=== PATIENT | male | born 1960 | race Asian ===

== ENCOUNTER 2019-03-04 05:02 | Emergency (ER) | payer OTHER ==
[2019-03-04 05:13] VITALS: TEMP 97.6; BMI 26.9
--- NOTE | 2019-03-04 05:13 | PDOC ---
History of Present Illness - General Chief Complaint: Chest Pain Stated Complaint: CHEST PAIN Time Seen by Provider: 03/04/19 05:10 - History of Present Illness Initial Comments: 59yo M with PMH of HLD and DM presenting with chest pain. Patient states he had a couple seconds of chest pain described as "pinching" and rated 2/10 at around 3:45am in the morning. This woke him up from sleeping. He felt a similar episode about one hour later, also lasting a couple seconds. The pain is non- radiating, non-palpable, and non-pleuritic. No nausea, vomiting, or diaphoresis. Patient without chest pain currently. Patient had felt similar pain several years ago which had a negative cardiac workup. Denies personal or family history of GA. Patient reports that his last ECHO was in Sep 2018 and his last EKG was in Nov which were both "normal." No hemoptysis, no recent surgical history, no recent immobilization, no hormone use, no history of DVT or PE. No fevers, shortness of breath, or abdominal pain. Past History - Past Medical History Allergies/Adverse Reactions: Allergies Allergy/AdvReac Type Severity Reaction Status Date / Time No Known Allergies Allergy Verified 03/04/19 05:11 Home Medications: Ambulatory Orders Cholecalciferol (Vitamin D3) [Vitamin D3] 1,000 unit PO DAILY 04/21/14 Insulin Glargine,Hum.rec.anlog [Lantus Solostar PEN -] 28 units SQ DAILY Losartan Potassium [Cozaar] 50 mg PO DAILY 04/21/14 [place]-3 Acid Ethyl Esters [Lovaza -] 1,000 mg PO BID 04/21/14 Sitagliptin Phos/Metformin HCl [Janumet 50-1,000 mg Tablet] 1 tab PO BID Vitamin E 800 unit PO DAILY 04/21/14 Canagliflozin [Invokana] 100 mg PO DAILY 03/04/19 Anemia: No Asthma: No Cancer: No Cardiac Disorders: No CVA: No COPD: No CHF: No Dementia: No Diabetes: Yes (INSULIN DEPENDENT DM) GI Disorders: Yes (CONSTIPATION) Disorders: No HTN: Yes Hypercholesterolemia: Yes Liver Disease: No Seizures: No Thyroid Disease: No - Surgical History Abdominal Surgery: No Appendectomy: No Cardiac Surgery: No Cholecystectomy: No Lung Surgery: No Neurologic Surgery: No Orthopedic Surgery: No - Immunization History Immunization Up to Date: Yes - Suicide/Smoking/Psychosocial Hx Smoking History: Never smoked Have you smoked in the past 12 months: No Information on smoking cessation initiated: No Hx Alcohol Use: No Drug/Substance Use Hx: No Substance Use Type: Alcohol Hx Substance Use Treatment: No Review of Systems - Review of Systems Comments:: Constitutional: no fever, no chills HEENT: no throat pain, no dysphagia Cardiovascular: +chest pain, no palpitations Respiratory: no cough, no shortness of breath Gastrointestinal: no abdominal pain, no nausea Genitourinary: no dysuria, no frequency Musculoskeletal: no myalgia, no arthralgia Skin: no rash, no itching Neurologic: no headache, no weakness *Physical Exam - Vital Signs Last Vital Signs Temp Pulse Resp BP Pulse Ox 97.6 F 90 18 142/96 99 03/04/19 05:11 03/04/19 05:11 03/04/19 05:11 03/04/19 05:11 03/04/19 05:11 - Physical Exam Comments: General: Awake, alert, and fully oriented, in no acute distress Head: No signs of trauma Eyes: EOMI, sclera anicteric ENT: Moist mucus membranes Neck: Normal ROM, supple Lungs: Lungs clear, Normal breath sounds Cardio: Regular rhythm, S1 and S2 present Abdomen: Soft, nontender Extremities: Normal range of motion, Distal pulses present SKIN: Warm, Dry, normal turgor Neurologic: Cranial nerves II through XII grossly intact. Normal speech ED Treatment Course - LABORATORY CBC & Chemistry Diagram: 03/04/19 06:00 03/04/19 06:00 Medical Decision Making - Medical Decision Making 58yo M with PMH of HLD and DM presenting with chest pain. DDX including but not limited to ACS, PE, PNA, MSK. GERD Labs, EKG, CXR EKG: rate 85, QTc 435, NSR, No ST d/e 03/04/19 05:14 CBC WBC 10.3 K/mm3 (4.0-10.0) H 03/04/19 06:00 RBC 4.76 M/mm3 (4.00-5.60) 03/04/19 06:00 Hgb 15.7 GM/dL (11.7-16.9) 03/04/19 06:00 Hct 45.1 % (35.4-49) 03/04/19 06:00 MCV 94.7 fl (80-96) 03/04/19 06:00 MCH 33.1 pg (25.7-33.7) 03/04/19 06:00 MCHC 34.9 g/dl (32.0-35.9) 03/04/19 06:00 RDW 13.4 % (11.9-15.9) 03/04/19 06:00 Plt Count 176 K/MM3 (134-434) 03/04/19 06:00 MPV 7.4 fl (7.5-11.1) L 03/04/19 06:00 Absolute Neuts (auto) 7.1 K/mm3 (1.5-8.0) 03/04/19 06:00 Neutrophils % 69.2 % (42.8-82.8) 03/04/19 06:00 Lymphocytes % 18.2 % (8-40) D 03/04/19 06:00 Monocytes % 9.5 % (3.8-10.2) 03/04/19 06:00 Eosinophils % 2.7 % (0-4.5) 03/04/19 06:00 Basophils % 0.4 % (0-2.0) 03/04/19 06:00 Nucleated RBC % 0 % (0-0) 03/04/19 06:00 Slight leukocytosis No anemia CMP Sodium 139 mmol/L (136-145) 03/04/19 06:00 Potassium 4.5 mmol/L (3.5-5.1) 03/04/19 06:00 Chloride 105 mmol/L (98-107) 03/04/19 06:00 Carbon Dioxide 28 mmol/L (21-32) 03/04/19 06:00 Anion Gap 5 MMOL/L (8-16) L 03/04/19 06:00 BUN 17 mg/dL (7-18) 03/04/19 06:00 Creatinine 1.0 mg/dL (0.55-1.3) 03/04/19 06:00 Est GFR (CKD-EPI)AfAm 95.06 03/04/19 06:00 Est GFR (CKD-EPI)NonAf 82.02 03/04/19 06:00 Random Glucose 138 mg/dL (74-106) H 03/04/19 06:00 Calcium 8.8 mg/dL (8.5-10.1) 03/04/19 06:00 Total Bilirubin 0.7 mg/dL (0.2-1) 03/04/19 06:00 AST 9 U/L (15-37) L 03/04/19 06:00 ALT 27 U/L (13-61) 03/04/19 06:00 Alkaline Phosphatase 56 U/L (45-117) 03/04/19 06:00 Creatine Kinase 50 U/L (26-308) 03/04/19 08:20 Troponin I < 0.02 ng/ml (0.00-0.05) 03/04/19 08:20 Total Protein 6.8 g/dl (6.4-8.2) 03/04/19 06:00 Albumin 3.6 g/dl (3.4-5.0) 03/04/19 06:00 Electrolytes WNL Tpn undetectable CXR: "A single AP view of the chest has been submitted. There is an apical lordotic projection with clear lungs, normal mediastinum and sharp angles. The bones and soft tissues are intact. Since 2012 there is no change of an adverse nature." Pending second Tpn Patient signed out to Dr. Guzman and day team *DC/Admit/Observation/Transfer Diagnosis at time of Disposition: Chest pain - Discharge Dispostion Disposition: HOME Condition at time of disposition: Good - Referrals Referrals: Andrew Holt MD [Primary Care Provider] - - Patient Instructions Printed Discharge Instructions: DI for Atypical Chest Pain Additional Instructions: You were evaluated today for your chest pain. Your labs, an EKG and a chest x-ray showed no concerning findings and at this time you are safe for discharge home. Make an appointment for further evaluation with Dr. Holt in the next 3 days. You also require evaluation by a green building engineer for stress testing. We have provided a referral or you can call your insurance company for a list of doctors. Return immediately to the Emergency Department for any new/worsening/concerning symptoms. - Post Discharge Activity
--- NOTE | 2019-03-04 05:48 | PDOC ---
Attending Attestation - Resident Resident Name: Liz Givens - ED Attending Attestation I have performed the following: I have examined & evaluated the patient, The case was reviewed & discussed with the resident, I agree w/resident's findings & plan, Exceptions are as noted
[2019-03-04 06:19] LABS: BASO % 0.4 % (0-2.0); EOS % 2.7 % (0-4.5); HEMATOCRIT 45.1 % (35.4-49); HEMOGLOBIN 15.7 GM/dL (11.7-16.9); LYMPH % 18.2 % (8-40); MCH 33.1 pg (25.7-33.7); MCHC 34.9 g/dl (32.0-35.9); MEAN CELL VOLUME 94.7 fl (80-96); MEAN PLT VOLUME 7.4 fl (7.5-11.1); MONO % 9.5 % (3.8-10.2); NEUT % 69.2 % (42.8-82.8); PLATELET COUNT 176 K/MM3 (134-434); RBC 4.76 M/mm3 (4.00-5.60); RDW 13.4 % (11.9-15.9); WHITE BLOOD COUNT 10.3 K/mm3 (4.0-10.0)
[2019-03-04 06:32] LABS: INR 1.01 (0.83-1.09); PROTHROMBIN TIME (PATIENT) 11.9 SEC (9.7-13.0)
[2019-03-04 06:35] LABS: ACTIVATED PTT 27.9 SECONDS (25.2-36.5)
[2019-03-04 06:40] LABS: ALBUMIN 3.6 g/dl (3.4-5.0); ALK PHOS 56 U/L (45-117); ANION GAP 5 MMOL/L (8-16); BILIRUBIN,TOTAL 0.7 mg/dL (0.2-1); BLOOD UREA NITROGEN 17 mg/dL (7-18); CALCIUM 8.8 mg/dL (8.5-10.1); CHLORIDE 105 mmol/L (98-107); CO2 28 mmol/L (21-32); GLUCOSE,RANDOM 138 mg/dL (74-106); POTASSIUM 4.5 mmol/L (3.5-5.1); SGOT/AST 9 U/L (15-37); SGPT/ALT 27 U/L (13-61); SODIUM 139 mmol/L (136-145); TOT PROT 6.8 g/dl (6.4-8.2)
--- NOTE | 2019-03-04 07:13 | PDOC ---
*Physical Exam - Vital Signs Last Vital Signs Temp Pulse Resp BP Pulse Ox 97.6 F 82 21 H 127/82 97 03/04/19 05:11 03/04/19 07:03 03/04/19 07:03 03/04/19 07:03 03/04/19 07:03 - Physical Exam Comments: 03/04/19 09:46 Awake, alert, well appearing CV: S1, S2 no M/R/G Respiratory: CLTA B/L Extremity: 2+ DP pulse B/L, no edema ED Treatment Course - LABORATORY CBC & Chemistry Diagram: 03/04/19 06:00 03/04/19 06:00 - ADDITIONAL ORDERS Additional order review: Laboratory Results 03/04/19 03/04/19 06:00 06:00 PT with INR 11.90 INR 1.01 PTT (Actin FS) 27.9 Sodium 139 Potassium 4.5 Chloride 105 Carbon Dioxide 28 Anion Gap 5 L BUN 17 Creatinine 1.0 Est GFR (CKD-EPI)AfAm 95.06 Est GFR (CKD-EPI)NonAf 82.02 Random Glucose 138 H Calcium 8.8 Total Bilirubin 0.7 AST 9 L ALT 27 Alkaline Phosphatase 56 Creatine Kinase 59 Troponin I < 0.02 Total Protein 6.8 Albumin 3.6 03/04/19 06:00 RBC 4.76 MCV 94.7 MCHC 34.9 RDW 13.4 MPV 7.4 L Neutrophils % 69.2 Lymphocytes % 18.2 D Monocytes % 9.5 Eosinophils % 2.7 Basophils % 0.4 Medical Decision Making - Medical Decision Making 03/04/19 07:12 Care endorsed @ Dr. Givens (Resident) and Dr. Horowitz (Attending) @ 0700 58 year old male with 2-3 episodes of intermittent substernal chest tightness. No associated shortness of breath, lightheadedness of palpitations. H/o negative stress testing > 5 years previous. PMH includes IDDM, HLD, HTN. @ [facility] med-surg nurse @ bedside. Heart Score 3. 03/04/19 07:31 Patient assessed @ bedside. Well appearing, VSS 1 episode of 2-3 seconds of substernal chest tightness while in the ED. H/o negative stress testing >5 years previous 03/04/19 08:31 Repeat Troponin pending 03/04/19 09:26 2nd Troponin (-) Call placed to patient's PMD, Dr. Holt 03/04/19 09:30 Patient reassessed @ bedside VSS Resting comfortably, no additional episodes of chest tightness/CP while in ED 03/04/19 09:32 Case d/w Dr. Holt - agrees with d/c home, will see patient in office and refer to cardiology 03/04/19 09:41 Repeat VS: BP 125/82, HR 96%, SpO2 100% on RA 03/04/19 09:47 Patient given copy of labs, EKG and CXR report. Patient is well appearing with normal vitals and clinically stable for discharge at this time. I discussed the physical exam findings, ancillary test results and final diagnoses with the patient. I answered all of the patient and patient's questions. The patient was satisfied with the care received and felt comfortable with the discharge plan and treatment plan. The patient agrees to follow up with his primary care physician within 24-72 hours. *DC/Admit/Observation/Transfer Diagnosis at time of Disposition: Chest pain - Discharge Dispostion Disposition: HOME Condition at time of disposition: Good Decision to Admit order: No - Referrals Referrals: Andrew Holt MD [Primary Care Provider] - - Patient Instructions Printed Discharge Instructions: DI for Atypical Chest Pain Additional Instructions: You were evaluated today for your chest pain. Your labs, an EKG and a chest x-ray showed no concerning findings and at this time you are safe for discharge home. Make an appointment for further evaluation with Dr. Holt in the next 3 days. You also require evaluation by a drill punch operator for stress testing. We have provided a referral or you can call your insurance company for a list of doctors. Return immediately to the Emergency Department for any new/worsening/concerning symptoms. - Post Discharge Activity
[2019-03-04] MEDS ORDERED: ASPIRIN 325 MG TABLET PO ONE (08:24)
[2019-03-04] MEDS ORDERED: ASPIRIN 325 MG TABLET ONE (08:38)
--- NOTE | 2019-03-04 10:14 | PDOC ---
*Physical Exam - Vital Signs Last Vital Signs Temp Pulse Resp BP Pulse Ox 97.6 F 82 21 H 127/82 99 03/04/19 05:11 03/04/19 07:03 03/04/19 07:03 03/04/19 07:03 03/04/19 07:30 - Physical Exam General Appearance: Yes: Nourished Neck: positive: Trachea midline Respiratory/Chest: positive: Lungs Clear, Normal Breath Sounds Cardiovascular: positive: Regular Rhythm, Regular Rate, S1, S2 Gastrointestinal/Abdominal: positive: Normal Bowel Sounds, Flat, Soft. negative : Tender Musculoskeletal: positive: Normal Inspection ED Treatment Course - LABORATORY CBC & Chemistry Diagram: 03/04/19 06:00 03/04/19 06:00 - ADDITIONAL ORDERS Additional order review: Laboratory Results 03/04/19 03/04/19 03/04/19 08:20 06:00 06:00 PT with INR 11.90 INR 1.01 PTT (Actin FS) 27.9 Sodium 139 Potassium 4.5 Chloride 105 Carbon Dioxide 28 Anion Gap 5 L BUN 17 Creatinine 1.0 Est GFR (CKD-EPI)AfAm 95.06 Est GFR (CKD-EPI)NonAf 82.02 Random Glucose 138 H Calcium 8.8 Total Bilirubin 0.7 AST 9 L ALT 27 Alkaline Phosphatase 56 Creatine Kinase 50 59 Troponin I < 0.02 < 0.02 Total Protein 6.8 Albumin 3.6 03/04/19 06:00 RBC 4.76 MCV 94.7 MCHC 34.9 RDW 13.4 MPV 7.4 L Neutrophils % 69.2 Lymphocytes % 18.2 D Monocytes % 9.5 Eosinophils % 2.7 Basophils % 0.4 - Medications Given in the ED: ED Medications Discontinued Medications Generic Name Dose Route Start Last Admin Trade Name Freq PRN Reason Stop Dose Admin Aspirin 325 mg 03/04/19 08:24 03/04/19 08:42 Asa - PO 03/04/19 08:25 325 mg ONCE ONE Administration Medical Decision Making - Medical Decision Making 03/04/19 10:09 58 yo male signed out to me by DR Horowitz, assumed care of pt at 7am, pending repeat troponin. benjie, Mr Garg 58 yo male h/o HLD HTN here with c/o chest pain. describes as burning and pinching in quality. no radiation. has had before. pt thought it was gas. no associated n/v no sob. no leg swelling. states he has had a stress test many years ago, did have a recent echo in 2017. no chest pain currently. pt with normal exam. labs reviewed. trop negative x 2. cxr negative. will dc home. Dr Guzman called dr hammond will see pt later today to arrange cardiology fu. d/w family and agreeable with plan. *DC/Admit/Observation/Transfer Diagnosis at time of Disposition: Chest pain - Discharge Dispostion Disposition: HOME Condition at time of disposition: Good - Referrals Referrals: Andrew Hammond MD [Primary Care Provider] - - Patient Instructions Printed Discharge Instructions: DI for Atypical Chest Pain Additional Instructions: You were evaluated today for your chest pain. Your labs, an EKG and a chest x-ray showed no concerning findings and at this time you are safe for discharge home. Make an appointment for further evaluation with Dr. Hammond in the next 3 days. You also require evaluation by a pressing department supervisor for stress testing. We have provided a referral or you can call your insurance company for a list of doctors. Return immediately to the Emergency Department for any new/worsening/concerning symptoms. - Post Discharge Activity
[2019-03-04 10:24] VITALS: BP 125/82; PULSE 85
--- NOTE | 2019-03-04 13:30 | EKG ---
Test Reason : Blood Pressure : / mmHG Vent. Rate : 085 BPM Atrial Rate : 085 BPM P-R Int : 156 ms QRS Dur : 090 ms QT Int : 366 ms P-R-T Axes : 039 -07 020 degrees QTc Int : 435 ms NORMAL SINUS RHYTHM ABNORMAL ECG WHEN COMPARED WITH ECG OF 21-APR-2014 07:21, NO SIGNIFICANT CHANGE WAS FOUND Confirmed by LAURA ROSENBERG MD ([id number]) on 03/04/2019 1:30:27 PM Referred By: Confirmed By:LAURA ROSENBERG MD
== END 2019-03-04 10:10 | disposition home or self-care (01) ==
LOC: JER 05:02
DX: R07.9 Chest pain, unspecified (principal); E11.9 Type 2 diabetes mellitus without complications; I10 Essential (primary) hypertension; E78.5 Hyperlipidemia, unspecified
CPT/HCPCS: 36415; 71045-TC-FY; 80053; 82550; 84484; 85025; 85610; 85730; 93005; 93010; 99284-25

== ENCOUNTER 2019-06-01 07:48 | Day surgery (SDC) | payer OTHER ==
[2019-06-01 08:28] VITALS: TEMP 98.3
[2019-06-01 10:52] VITALS: BP 130/88; PULSE 88
[2019-06-01 12:45] LABS: ALBUMIN 3.9 g/dl (3.4-5.0); ALK PHOS 58 U/L (45-117); ANION GAP 7 MMOL/L (8-16); BILIRUBIN,TOTAL 0.9 mg/dL (0.2-1); BLOOD UREA NITROGEN 11.7 mg/dL (7-18); CALCIUM 9.3 mg/dL (8.5-10.1); CHLORIDE 102 mmol/L (98-107); CO2 30 mmol/L (21-32); CREATININE 0.9 mg/dL (0.55-1.3); GLUCOSE,RANDOM 252 mg/dL (74-106); IRON SERUM 80 ug/dL (50-175); POTASSIUM 4.2 mmol/L (3.5-5.1); SGOT/AST 20 U/L (15-37); SGPT/ALT 37 U/L (13-61); SODIUM 138 mmol/L (136-145); TOTAL IRON BINDING CAPACITY 300 ug/dL (250-450)
[2019-06-01 12:48] LABS: BASO % 0.3 % (0-2.0); EOS % 3.3 % (0-4.5); HEMATOCRIT 45.3 % (35.4-49); HEMOGLOBIN 16.3 GM/dL (11.7-16.9); LYMPH % 21.2 % (8-40); MCH 34.3 pg (25.7-33.7); MCHC 35.9 g/dl (32.0-35.9); MEAN CELL VOLUME 95.4 fl (80-96); MEAN PLT VOLUME 7.3 fl (7.5-11.1); MONO % 6.8 % (3.8-10.2); NEUT % 68.4 % (42.8-82.8); PLATELET COUNT 144 K/MM3 (134-434); RBC 4.75 M/mm3 (4.00-5.60); RDW 13.4 % (11.9-15.9); WHITE BLOOD COUNT 6.9 K/mm3 (4.0-10.0)
[2019-06-02 12:12] LABS: TRANSGLUTAMINASE IGA < 2 U/mL (0-3); TRANSGLUTAMINASE IGG 2 U/mL (0-5)
--- NOTE | 2019-06-02 16:39 | PATH ---
Surgical Pathology Report Patient Name: KARRI MORGAN [facility]. Rec. #: [id number] /Age/Gender: 1960 (Age: 59) / M Account: [id number] Location: [facility]-ENDOSCOPY Taken: 06/01/2019 Received: 06/01/2019 Reported: 06/02/2019 Physicians: Pilar Tabor M.D. Specimen(s) Received A: SECOND PORTION DUODENUM AND DUODENAL BULB B: GASTRIC ANTRUM C: ANTRAL POLYP D: DISTAL TRANSVERSE COLON POLYP E: RIGHT COLON POLYP F: PROXIMAL TRANSVERSE COLON POLYP G: POLYP RECTUM Clinical History Constipation, colon cancer screening, abdominal pain, early satiety, rule out ulcer Postoperative diagnosis: Multiple bulb ulcers, atrophic gastritis, antral polyp, colon polyps, diverticulosis Final Diagnosis A. DUODENUM, SECOND PORTION AND DUODENAL BULB, BIOPSY: DUODENAL MUCOSA WITH SEVERE ACUTE AND CHRONIC DUODENITIS AND ASSOCIATED ULCERATION. B. GASTRIC ANTRUM, BIOPSY: GASTRIC ANTRAL MUCOSA WITH MILD CHRONIC GASTRITIS. IMMUNOHISTOCHEMICAL STAIN FOR H. PYLORI IS NEGATIVE. C. ANTRAL POLYP, BIOPSY: POLYPOID GASTRIC ANTRAL MUCOSA WITH MILD CHRONIC GASTRITIS AND MILD LAMINA PROPRIA FIBROSIS. IMMUNOHISTOCHEMICAL STAIN FOR H. PYLORI IS NEGATIVE. NO CARCINOID TUMOR IDENTIFIED, SEE COMMENT. D. DISTAL TRANSVERSE COLON POLYPS, POLYPECTOMY: HYPERPLASTIC POLYP. E. COLON, RIGHT, POLYP, POLYPECTOMY: TUBULAR ADENOMA. F. PROXIMAL TRANSVERSE COLON, POLYP, POLYPECTOMY: POLYPOID COLONIC MUCOSA WITH PROMINENT LYMPHOID AGGREGATE AND SUPERFICIAL HYPERPLASTIC FEATURES. G. RECTUM POLYP, POLYPECTOMY: HYPERPLASTIC POLYP. Comment: Part C, Immunohistochemical stains performed and interpreted at [facility] show chromogranin highlights rare ECL cells. No diagnostic features of carcinoid tumor identified. Suggest clinical and endoscopic correlation. Electronically Signed Nayeli Salguero M.D. Gross Description A. Received in formalin, labeled "second portion duodenum and duodenal bulb" are 3 arguello, irregular portions of soft tissue measuring 0.2-0.3 cm. in greatest dimension. The specimens are submitted in toto in one cassette. B. Received in formalin, labeled "gastric antrum" are 3 arguello, irregular portions of soft tissue measuring 0.3-0.5 cm. in greatest dimension. The specimens are submitted in toto in one cassette. C. Received in formalin, labeled "antral polyp" are 5 arguello, irregular portions of soft tissue measuring 0.1-0.2 cm. in greatest dimension. The specimens are submitted in toto in one cassette. D. Received in formalin, labeled "distal transverse colon polyps" are >10 arguello, irregular portions of soft tissue measuring 0.1-0.2 cm. in greatest dimension. The specimens are submitted in toto in one cassette. E. Received in formalin, labeled "right colon polyp" are 2 arguello, irregular portions of soft tissue measuring 0.2 and 0.5 cm. in greatest dimension. The specimens are submitted in toto in one cassette. F. Received in formalin, labeled "proximal transverse colon polyp" are 2 arguello, irregular portions of soft tissue measuring 0.2 cm. in greatest dimension. The specimens are submitted in toto in one cassette. G. Received in formalin, labeled "polyp rectum" is a arguello, irregular portion of soft tissue measuring 0.2 cm. in greatest dimension. The specimen is submitted in toto in one cassette. MLSZ/06/01/2019 sanml/06/01/2019
== END 2019-06-01 11:30 | disposition home or self-care (01) ==
LOC: JASU-ENDO 07:48
PROVIDERS: ATTEND Internal Medicine Gastroenterology
PROC: 0DBL8ZX Excision of Transverse Colon, Via Natural or Artificial Opening Endoscopic, Diagnostic (ICD-10-PCS; 2019-06-01)
PROC: 0DBP8ZX Excision of Rectum, Via Natural or Artificial Opening Endoscopic, Diagnostic (ICD-10-PCS; 2019-06-01)
PROC: 0DB98ZX Excision of Duodenum, Via Natural or Artificial Opening Endoscopic, Diagnostic (ICD-10-PCS; 2019-06-01)
PROC: 0DB68ZX Excision of Stomach, Via Natural or Artificial Opening Endoscopic, Diagnostic (ICD-10-PCS; 2019-06-01)
PROC: 0DBK8ZX Excision of Ascending Colon, Via Natural or Artificial Opening Endoscopic, Diagnostic (ICD-10-PCS; principal; 2019-06-01 08:45)
DX: Z12.11 Encounter for screening for malignant neoplasm of colon (principal); D12.2 Benign neoplasm of ascending colon; D12.3 Benign neoplasm of transverse colon; K62.1 Rectal polyp; K64.8 Other hemorrhoids; K57.30 Diverticulosis of large intestine without perforation or abscess without bleeding; K59.00 Constipation, unspecified; K31.9 Disease of stomach and duodenum, unspecified; R19.4 Change in bowel habit; K31.7 Polyp of stomach and duodenum; K26.9 Duodenal ulcer, unspecified as acute or chronic, without hemorrhage or perforation; K29.40 Chronic atrophic gastritis without bleeding
CPT/HCPCS: 36415; 80053; 82728; 82941; 83516; 83540; 83550; 85025; 86140; 88305-TC; 88341-TC; 88342-TC

== ENCOUNTER 2019-10-26 06:51 | Day surgery (SDC) | payer OTHER ==
[2019-10-25 13:51] VITALS: BMI 26.1
[2019-10-26 07:52] VITALS: TEMP 97.9
[2019-10-26 09:06] VITALS: BP 150/96; PULSE 84
--- NOTE | 2019-10-27 10:32 | PATH ---
Surgical Pathology Report Patient Name: KARRI MORGAN [facility]. Rec. #: [id number] /Age/Gender: 1960 (Age: 59) / M Account: [id number] Location: [facility]-ENDOSCOPY Taken: 10/26/2019 Received: 10/26/2019 Reported: 10/27/2019 Physicians: Pilar Tabor M.D. Specimen(s) Received ANTRUM Clinical History Multiple duodenal ulcers Postoperative diagnosis: Resolved duodenal ulcers and mild gastritis Final Diagnosis STOMACH, ANTRUM, BIOPSY: GASTRIC ANTRAL MUCOSA WITH MILD CHRONIC GASTRITIS. IMMUNOSTAIN FOR H. PYLORI IS NEGATIVE. Comment: Also see prior specimen [id number]. Electronically Signed Jed Campbell M.D. Gross Description Received in formalin, labeled "biopsy antrum" is a arguello, irregular portion of soft tissue measuring 0.4 cm. in greatest dimension. The specimen is submitted in toto in one cassette. /10/26/2019 saudi/10/26/2019
== END 2019-10-26 09:03 | disposition home or self-care (01) ==
LOC: JASU-ENDO 06:51
PROVIDERS: ATTEND Internal Medicine Gastroenterology
PROC: 0DB68ZX Excision of Stomach, Via Natural or Artificial Opening Endoscopic, Diagnostic (ICD-10-PCS; 2019-10-26)
PROC: 0DB68ZX Excision of Stomach, Via Natural or Artificial Opening Endoscopic, Diagnostic (ICD-10-PCS; principal; 2019-10-26 08:00)
DX: K29.70 Gastritis, unspecified, without bleeding (principal); E11.9 Type 2 diabetes mellitus without complications; Z79.4 Long term (current) use of insulin; I10 Essential (primary) hypertension

== ENCOUNTER 2019-11-23 15:30 | Emergency (ER) | payer OTHER ==
[2019-11-23 15:39] VITALS: TEMP 98.2; BMI 26.6
[2019-11-23] MEDS ORDERED: ASPIRIN 81 MG CHEWABLE TABLETS PO ONE (15:39)
--- NOTE | 2019-11-23 15:43 | PDOC ---
Rapid Medical Evaluation Chief Complaint: Chest Pain Time Seen by Provider: 11/23/19 15:39 Medical Evaluation: Allergies Allergy/AdvReac Type Severity Reaction Status Date / Time No Known Allergies Allergy Verified 03/04/19 05:11 Vital Signs Temp Pulse Resp BP Pulse Ox 98.2 F 99 H 18 143/79 96 11/23/19 15:36 11/23/19 15:36 11/23/19 15:36 11/23/19 15:36 11/23/19 15:36 11/23/19 15:41 Pt c/o : lscp x 45 minutes, took gasx which helped a little but now returned as pressure like, hx dm and elevated trig Pt on brief exam: vss, lcta, rrr Pt ordered for : cardiac w/u Pt to proceed to the ED Discharge Disposition - Diagnosis Chest pain - Referrals - Patient Instructions - Post Discharge Activity
[2019-11-23 16:34] LABS: BASO % 0.5 % (0-2.0); EOS % 4.6 % (0-4.5); HEMATOCRIT 45.7 % (35.4-49); HEMOGLOBIN 16.5 GM/dL (11.7-16.9); MCH 33.6 pg (25.7-33.7); MCHC 36.2 g/dl (32.0-35.9); MEAN PLT VOLUME 7.7 fl (7.5-11.1); MONO % 7.9 % (3.8-10.2); PLATELET COUNT 154 K/MM3 (134-434); RBC 4.91 M/mm3 (4.00-5.60); RDW 13.7 % (11.9-15.9)
[2019-11-23 16:39] LABS: INR 1.01 (0.83-1.09); PROTHROMBIN TIME (PATIENT) 11.9 SEC (9.7-13.0)
[2019-11-23 16:46] LABS: ALBUMIN 4.1 g/dl (3.4-5.0); ALK PHOS 63 U/L (45-117); ANION GAP 8 MMOL/L (8-16); BILIRUBIN,TOTAL 0.9 mg/dL (0.2-1); BLOOD UREA NITROGEN 14.5 mg/dL (7-18); CALCIUM 9.1 mg/dL (8.5-10.1); CHLORIDE 101 mmol/L (98-107); CO2 28 mmol/L (21-32); GLUCOSE,RANDOM 229 mg/dL (74-106); POTASSIUM 4.2 mmol/L (3.5-5.1); SGOT/AST 23 U/L (15-37); SGPT/ALT 48 U/L (13-61); SODIUM 136 mmol/L (136-145); TOT PROT 7.4 g/dl (6.4-8.2)
[2019-11-23] MEDS ORDERED: ASPIRIN 81 MG CHEWABLE TABLETS ONE (17:41)
--- NOTE | 2019-11-23 17:43 | PDOC ---
History of Present Illness - General Chief Complaint: Chest Pain Stated Complaint: CHEST PAIN Time Seen by Provider: 11/23/19 15:39 History Source: Patient - History of Present Illness Initial Comments: 59M PMH IDDM, HLD c/o localized, nonradiating left sided chest discomfort that started when patient was getting dressed today around 2:45pm. Discomfort lasted 1 hour, resolved with gas-x. No diaphoresis, sob, radiation, n/v. Denies f/c, abd pain, dysuria. Endorses chronic issue w/ constipation. Denies smoking. Has been eval'd before for similar presentation last year at [facility]. NKDA Past History - Past Medical History Allergies/Adverse Reactions: Allergies Allergy/AdvReac Type Severity Reaction Status Date / Time No Known Allergies Allergy Verified 03/04/19 05:11 Home Medications: Ambulatory Orders Cholecalciferol (Vitamin D3) [Vitamin D3] 1,000 unit PO DAILY 04/21/14 Insulin Glargine,Hum.rec.anlog [Lantus Solostar PEN -] 28 units SQ DAILY Losartan Potassium [Cozaar] 50 mg PO DAILY 04/21/14 Sitagliptin Phos/Metformin HCl [Janumet 50-1,000 mg Tablet] 1 tab PO BID Vitamin E 800 unit PO DAILY 04/21/14 Canagliflozin [Invokana] 100 mg PO DAILY 03/04/19 Icosapent Ethyl [Vascepa] 2 mg PO DAILY 05/31/19 Multivitamin with Iron [Multivitamins with Iron] 1 tab PO DAILY 05/31/19 Polyethylene Glycol 3350 [Miralax 119 gm Btl -] 17 gm PO DAILY 05/31/19 Mag Carb/Aluminum Hydrox/Algin [Gaviscon Liquid] 30 ml PO Q4H PRN 30 Days #355 oz 06/01/19 Niacin (Inositol Niacinate) [Niacin 500 mg Capsule] 500 mg PO DAILY 10/26/19 Pantoprazole Sodium 40 mg PO DAILY 10/26/19 Anemia: No Asthma: No Cancer: No Cardiac Disorders: No CVA: No COPD: No CHF: No Dementia: No Diabetes: Yes (INSULIN DEPENDENT DM) GI Disorders: Yes (CONSTIPATION,DIVERTICULOSIS) Disorders: No HTN: Yes Hypercholesterolemia: Yes Liver Disease: Yes (NAFLD VS NASHVS ETOH) Seizures: No Thyroid Disease: No - Surgical History Abdominal Surgery: No Appendectomy: No Cardiac Surgery: No Cholecystectomy: No Lung Surgery: No Neurologic Surgery: No Orthopedic Surgery: No - Immunization History Immunization Up to Date: Yes - Psycho Social/Smoking Cessation Hx Smoking History: Never smoked Have you smoked in the past 12 months: No Information on smoking cessation initiated: No Hx Alcohol Use: Yes Drug/Substance Use Hx: No Substance Use Type: None Hx Substance Use Treatment: No Review of Systems - Review of Systems Able to Perform ROS?: Yes Comments:: CONSTITUTIONAL: Denies F / C HEENT: Denies headache, lightheadedness, dizziness, changes in vision / hearing RESP: Denies SOB, cough CARD: Endorses chest discomfort (since resolved; CC). GI: Denies N / V / D, abdominal pain, bloody stool, inability to tolerate PO. Endorses passing gas after taking gas-x. Endorses chronic issues w/ constipation. : Denies dysuria SKIN: Denies rashes NEURO: Denies numbness, tingling, weakness MSK: Denies back pain *Physical Exam - Vital Signs Last Vital Signs Temp Pulse Resp BP Pulse Ox 98.2 F 99 H 18 143/79 96 11/23/19 15:36 11/23/19 15:36 11/23/19 15:36 11/23/19 15:36 11/23/19 15:36 - Physical Exam GEN: Well appearing, NAD, comfortable. AAOx3. HEENT: NC/AT. No facial asymmetry. Normal voice. Supple neck w/ FROM. CV: S1/S2, RRR, no m/r/g LUNG: CTAB, no wheezes, crackles, rales, rhonchi. GI: Soft, ndnt, +BS, no guarding, no rebound. + reducible hernia MSK: No LE edema. No obvious deformities of all extremities. SKIN: Warm, dry, no rashes appreciated. PSYCH: Normal mood and affect. NEURO: Moving all extremities well. Heart Score/ECG Review - History History: Slightly suspicious - Electrocardiogram EKG: Normal - Age Age: 45-65 - Risk Factors Risk Factors Heart Score: Yes Hx Hypercholesterolemia, Yes Hx Diabetes Based on the list above the patient has:: 1-2 risk factors - Troponin Troponin: </= normal limit - Score Heart Score - Total: 2 ED Treatment Course - LABORATORY CBC & Chemistry Diagram: 11/23/19 15:46 11/23/19 15:46 - ADDITIONAL ORDERS Additional order review: Laboratory Results 11/23/19 11/23/19 15:46 15:46 PT with INR 11.90 INR 1.01 Sodium 136 Potassium 4.2 Chloride 101 Carbon Dioxide 28 Anion Gap 8 BUN 14.5 Creatinine 1.0 Est GFR (CKD-EPI)AfAm 94.39 Est GFR (CKD-EPI)NonAf 81.44 Random Glucose 229 H Calcium 9.1 Total Bilirubin 0.9 AST 23 ALT 48 Alkaline Phosphatase 63 Creatine Kinase 92 Troponin I < 0.02 Total Protein 7.4 Albumin 4.1 11/23/19 15:46 RBC 4.91 MCV 93.0 MCHC 36.2 H RDW 13.7 MPV 7.7 Neutrophils % 60.0 Lymphocytes % 27.0 D Monocytes % 7.9 Eosinophils % 4.6 H Basophils % 0.5 Medical Decision Making - Medical Decision Making 11/23/19 17:35 59M PMH IDDM, HLD c/o nonexertional nonradiating left sided chest discomfort that resolved after an hour. RME orders - CBC, CMP, Cardiac, EKG, CXR, ASA - agree with orders, f/u - likely tele-obs EKG 1543 HR 98 WI 150 QRS 94 QTc 454 NSR; poor baseline 11/23/19 17:43 Initial trop neg Heart Score 2 CXR image reviewed, report reviewed 11/23/19 18:09 Dr Winters cardiology 11/23/19 18:37 d/w Dr. Winters - given that patient is asymptomatic and has atypical presentation, no EKG abnormalities, negative initial troponin, and normal outpatient stress, she is comfortable with 2 troponins and outpatient cardiology f/u - will obtain 2nd troponin at 19:30 - if negative will DC home w/ cardiology f/u - will sign out to PM team Discharge - Discharge Information Problems reviewed: Yes Clinical Impression/Diagnosis: Chest pain Qualifiers: Chest pain type: unspecified Qualified Code(s): R07.9 - Chest pain, unspecified Condition: Stable Disposition: HOME - Admission No - Follow up/Referral Referrals: Chu Holt MD [Primary Care Provider] - Lori Winters MD [Staff Physician] - - Patient Discharge Instructions Patient Printed Discharge Instructions: DI for Atypical Chest Pain Additional Instructions: Your workup was reassuring for a non-emergent process. As discussed, your General Administrator would like you to follow up in her office. Follow up with your General Administrator in the next 2-4 days. Follow up with your primary care doctor in the next 3-5 days. Continue your home medications as prescribed. Return to the nearest Emergency Department if you experience: - chest pain - shortness of breath - nausea, vomiting - anything that concerns you - Post Discharge Activity
--- NOTE | 2019-11-23 18:03 | PDOC ---
Attending Attestation - Resident Resident Name: CarlChu - ED Attending Attestation I have performed the following: I have examined & evaluated the patient, The case was reviewed & discussed with the resident, I agree w/resident's findings & plan, Exceptions are as noted - HPI HPI: 11/23/19 18:00 5-year-old male history of diabetes hyperlipidemia here today complaining of a funny sensation in his chest. Patient states he had a sensation of something in his chest somewhat pressure-like no radiation it happened around 2:30 PM today lasted for an hour or so subsequently resolved spontaneously. Denies any associated shortness of breath is not pleuritic denies any history of PE or DVT no recent leg swelling. Patient does have a preparole counseling aide Dr. Winters states that he had a stress test which was performed at the end of last year which was reportedly normal. States he just took an aspirin since here in the ED took his regular prescription medications today denies any history of PE or DVT no recent travel no cough no fevers no chills no other current complaints - Physicial Exam PE: 11/23/19 18:01 Extremities are warm and well-perfused there is no edema noted to bilateral lower extremities awake alert no acute distress lungs are clear bilaterally heart is regular with any murmurs rubs or gallops abdomen is soft nontender skin is warm and dry 2+ DP PT pulses bilaterally patient is awake alert oriented x3 - Medical Decision Making 11/23/19 18:02 59-year-old male history of hyperlipidemia diabetes here today complaining of chest pain. Describes a pressure-like feeling of sensation that something was in his chest. Exam is normal EKG is unremarkable no ST elevations or depressions with a rate of 90 bpm chest x-ray shows no acute disease process labs are sent and are pending aspirin was given will discuss with the patient's preparole counseling aide will likely require at least 2 will discuss with his preparole counseling aide two 4-hour tropes hour Heart Score/ECG Review - History History: Moderately suspicious - Electrocardiogram EKG: Normal - Age Age: 45-65 - Risk Factors Risk Factors Heart Score: Yes Hx Hypercholesterolemia, Yes Hx Diabetes Based on the list above the patient has:: 1-2 risk factors - Troponin Troponin: </= normal limit - Score Heart Score - Total: 3 #1 General ECG Interpretation: Sinus Rhythm, Normal Rate (98), Normal Intervals, No acute ischemic changes
--- NOTE | 2019-11-23 19:07 | PDOC ---
*Physical Exam - Vital Signs Last Vital Signs Temp Pulse Resp BP Pulse Ox 98.2 F 99 H 18 143/79 96 11/23/19 15:36 11/23/19 15:36 11/23/19 15:36 11/23/19 15:36 11/23/19 15:36 ED Treatment Course - LABORATORY CBC & Chemistry Diagram: 11/23/19 15:46 11/23/19 15:46 - ADDITIONAL ORDERS Additional order review: Laboratory Results 11/23/19 11/23/19 15:46 15:46 PT with INR 11.90 INR 1.01 Sodium 136 Potassium 4.2 Chloride 101 Carbon Dioxide 28 Anion Gap 8 BUN 14.5 Creatinine 1.0 Est GFR (CKD-EPI)AfAm 94.39 Est GFR (CKD-EPI)NonAf 81.44 Random Glucose 229 H Calcium 9.1 Total Bilirubin 0.9 AST 23 ALT 48 Alkaline Phosphatase 63 Creatine Kinase 92 Troponin I < 0.02 Total Protein 7.4 Albumin 4.1 11/23/19 15:46 RBC 4.91 MCV 93.0 MCHC 36.2 H RDW 13.7 MPV 7.7 Neutrophils % 60.0 Lymphocytes % 27.0 D Monocytes % 7.9 Eosinophils % 4.6 H Basophils % 0.5 - Medications Given in the ED: ED Medications Discontinued Medications Generic Name Dose Route Start Last Admin Trade Name Freq PRN Reason Stop Dose Admin Aspirin 162 mg 11/23/19 15:39 11/23/19 17:46 Asa - PO 11/23/19 15:40 162 mg ONCE ONE Administration Medical Decision Making - Medical Decision Making 11/23/19 19:06 Received sign out from Dr Henry. 59yo M hx IDDM and HLD p/w nonexertional nonradiating left sided chest discomfort that resolved after an hour. Pt asymptomatic since arrival in ED. EKG at 1543: HR 98 TX 150 QRS 94 QTc 454 NSR; poor baseline Labs reviewed: initial trop neg Heart Score 2 CXR reviewed: no concerning findings Dr Henry discussed pt with pt's heel scourer Dr Winters - recommended 2 troponins and outpatient cardiology f/u if troponins negative Pt seen and assessed at bedside. Remains asymptomatic. Pending: -trop at 1930 -if negative, d/c home w/cardio f/u 11/23/19 20:34 Trop neg Will dc home with cardio f/u. Return precautions given. Pt understands all dc instructions and all questions were answered. Discharge - Discharge Information Problems reviewed: Yes Clinical Impression/Diagnosis: Chest pain Qualifiers: Chest pain type: unspecified Qualified Code(s): R07.9 - Chest pain, unspecified Condition: Stable Disposition: HOME - Admission No - Follow up/Referral Referrals: Lori Winters MD [Staff Physician] - Chu Holt MD [Primary Care Provider] - - Patient Discharge Instructions Patient Printed Discharge Instructions: DI for Atypical Chest Pain Additional Instructions: Your workup was reassuring for a non-emergent process. As discussed, your C Consultant would like you to follow up in her office. Follow up with your C Consultant in the next 2-4 days. Follow up with your primary care doctor in the next 3-5 days. Continue your home medications as prescribed. Return to the nearest Emergency Department if you experience: - chest pain - shortness of breath - nausea, vomiting - anything that concerns you - Post Discharge Activity
[2019-11-23 20:57] VITALS: BP 135/84; PULSE 96
--- NOTE | 2019-11-24 15:14 | EKG ---
Test Reason : Blood Pressure : / mmHG Vent. Rate : 098 BPM Atrial Rate : 098 BPM P-R Int : 150 ms QRS Dur : 094 ms QT Int : 356 ms P-R-T Axes : 042 002 051 degrees QTc Int : 454 ms NORMAL SINUS RHYTHM POSSIBLE LEFT ATRIAL ENLARGEMENT BORDERLINE ECG WHEN COMPARED WITH ECG OF 04-MAR-2019 05:10, NO SIGNIFICANT CHANGE WAS FOUND Confirmed by WINNIE CASTANEDA MD ([id number]) on 11/24/2019 3:14:21 PM Referred By: Confirmed By:WINNIE CASTANEDA MD
== END 2019-11-23 20:53 | disposition home or self-care (01) ==
LOC: JER 15:30
DX: R07.9 Chest pain, unspecified (principal); E11.9 Type 2 diabetes mellitus without complications; E78.5 Hyperlipidemia, unspecified
CPT/HCPCS: 36415; 71046-TC-FY; 80053; 82550; 84484; 85025; 85610; 93005; 93010; 99285-25